=== PATIENT | male | born 1980 | race African-American/Black ===

== ENCOUNTER 2019-10-05 13:25 | Emergency (ER) | payer MEDICAID ==
[~2019-10-05] VITALS: Ht 185.4 cm; Wt 85.8 kg
--- NOTE | 2019-10-05 14:04 | NUR ---
FIRST CONTACT WITH PT. PT STATED "GOT OUT OF LONG-TERM & STARTED EATING DIFFERENT FOODS THAN WHAT'S IN THERE, NOW MY STOMACH IS ALL MESSED UP, IT HURTS & I WAS THROWING WITH DIARRHEA AFTER I EAT" PT ALSO STATED"ALL SYMPTOMS ARE GONE NOW." PT'S AOX4. RESPS EVEN AND UNLABORED. BP/SPO2 MONITORS IN PLACE.
[2019-10-05 14:32] LABS: BASOPHILS # (AUTO) 0.04 x10^3/uL (0-0.1); BASOPHILS % (AUTO) 0 % (0-1); EOSINOPHILS # (AUTO) 0.48 x10^3/uL (0-0.4); EOSINOPHILS % (AUTO) 5 % (1-7); LYMPHOCYTES # (AUTO) 1.89 x10^3/uL (1-3.4); LYMPHOCYTES % (AUTO) 22 % (22-44); MD NO; MEAN CORPUSCULAR HEMOGLOBIN 27.7 pg (27.5-34.5); MEAN CORPUSCULAR HGB CONC 32.8 g/dL (33.2-36.2); MEAN CORPUSCULAR VOLUME 84.6 fL (81-97); MEAN PLATELET VOLUME 7.4 fL (7.4-10.4); MONOCYTES # (AUTO) 0.75 x10^3/uL (0.2-0.8); MONOCYTES % (AUTO) 9 % (2-9); NEUTROPHILS # (AUTO) 5.63 x10^3/uL (1.8-6.8); NEUTROPHILS % (AUTO) 64 % (42-75); PLATELET COUNT 288 x10^3/uL (130-400); RED BLOOD COUNT 5.31 x10^6/uL (4.38-5.82)
[2019-10-05 14:45] LABS: ALBUMIN 3.5 g/dL (3.4-5.0); ANION GAP 6 mmol/L (5-15); CALCIUM 9.2 mg/dL (8.5-10.1); CHLORIDE 103 mmol/L (98-107)
[2019-10-05 14:54] LABS: CREATININE 1.68 mg/dL (0.7-1.3)
--- NOTE | 2019-10-05 14:58 | NUR ---
PT TALKING ON THE PHONE. PT'S AOX4. RESPS EVEN AND UNLABORED. BP/SPO2 MONITORS IN PLACE.
[2019-10-05 15:11] VITALS: BP 146/84
== END 2019-10-05 15:50 | disposition home or self-care (01) ==
LOC: ED 14:04
DX: K58.0 Irritable bowel syndrome with diarrhea (principal); R11.2 Nausea with vomiting, unspecified
CPT/HCPCS: 36415; 80048; 82040; 85025; 99283